=== PATIENT | female | born 1985 | race Caucasian/White ===

== ENCOUNTER 2017-08-23 08:29 | Emergency (ER) | payer SELFPAY, MEDICAID ==
[2017-08-23] MEDS: IBUPROFEN 800 MG TAB PO (09:09)
[2017-08-23] MEDS: ACETAMINOPHEN 500 MG TAB PO (09:09)
[2017-08-23 09:39] LABS: ADD UMIC YES; UR ASCORBIC ACID NEGATIVE (NEGATIVE); UR BACTERIA FEW /HPF (NONE SEEN); UR BILIRUBIN (Dip) NEGATIVE (NEGATIVE); UR BLOOD (Dip) NEGATIVE (NEGATIVE); UR CLARITY CLOUDY (CLEAR); UR COLOR YELLOW (YELLOW); UR GLUCOSE (Dip) NEGATIVE (NEGATIVE); UR KETONES (Dip) NEGATIVE (NEGATIVE); UR LEUKOCYTE ESTERASE (Dip) TRACE Leu/ul (NEGATIVE); UR MUCUS FEW /HPF (NONE SEEN); UR NITRITE (Dip) NEGATIVE (NEGATIVE); UR RBC 8 /HPF (0-5); UR SPECIFIC GRAVITY (Dip) 1.027 (1.003-1.030); UR SQUAMOUS EPITHELIAL CELL MODERATE /HPF (FEW); UR TOTAL PROTEIN (Dip) 1+ mg/dl (NEGATIVE); UR UROBILINOGEN (Dip) NEGATIVE (NEGATIVE); UR WBC 9 /HPF (0-5)
[2017-08-23] MEDS: CEFTRIAXONE 1 GM INJ IM (10:17)
== END 2017-08-23 10:57 | disposition home or self-care (01) ==
LOC: FTE 08:29
DX: N39.0 Urinary tract infection, site not specified (principal); J02.9 Acute pharyngitis, unspecified
CPT/HCPCS: 81001; 84703; 87400; 87880; 96372; 99284-25

== ENCOUNTER 2017-08-23 22:38 | Inpatient (IN) | payer SELFPAY ==
[2017-08-24] MEDS: SODIUM CHLORIDE 0.9% 1L BAG IV* (02:00)
[2017-08-24] MEDS: LORAZEPAM 2 MG INJ IV (02:28)
[2017-08-24] MEDS: IBUPROFEN 600 MG TAB PO (02:28)
[2017-08-24] MEDS: PIPER-TAZO 3.375 GM IV (PMX) 100 ML IVPB ×4 (02:28→17:16)
[2017-08-24 02:30] LABS: ADD MAN DIFF? NO
[2017-08-24 02:35] LABS: WHITE BLOOD COUNT 8.9 10^3/ul (4.8-10.8)
[2017-08-24 02:35] LABS: BASOPHILS % 0.2 % (0.0-2.0); HEMATOCRIT 36.2 % (37.0-47.0); HEMOGLOBIN 12.3 g/dl (12.0-16.0); LYMPHOCYTES # 1.1 10^3/ul (0.8-2.9); MEAN CORPUSCULAR HEMOGLOBIN 30.3 pg (29.0-33.0); MEAN CORPUSCULAR VOLUME 89.2 fl (82.0-101.0); MEAN PLATELET VOLUME 9.9 fl (7.4-10.4); MONOCYTE # 0.8 10^3/ul (0.3-0.9); MONOCYTES % 9.4 % (0.0-11.0); NEUTROPHIL # 6.9 10^3/ul (1.6-7.5); PLATELET COUNT 172 10^3/UL (140-415); RED BLOOD COUNT 4.06 10^6/ul (4.20-5.40)
[2017-08-24 02:38] LABS: INR 0.96; PROTIME 12.9 Sec (11.9-14.9)
[2017-08-24 02:39] LABS: PARTIAL THROMBOPLASTIN TIME 33.7 Sec (25.0-35.0)
[2017-08-24] MEDS ORDERED: LIDOCAINE 1% (MDV) 20 ML INJ (02:41)
[2017-08-24 02:43] LABS: ALANINE AMINOTRANSFERASE 72 IU/L (13-69); ALBUMIN 4.2 g/dl (3.3-4.9); ALKALINE PHOSPHATASE 121 IU/L (42-121); ANION GAP 18 (8-16); ASPARTATE AMINO TRANSFERASE 61 IU/L (15-46); BILIRUBIN,INDIRECT 0.5 mg/dl (0-1.1); BILIRUBIN,TOTAL 0.5 mg/dl (0.2-1.3); BLOOD UREA NITROGEN 7 mg/dl (7-20); CALCIUM 9.1 mg/dl (8.4-10.2); CARBON DIOXIDE 26 mmol/L (21-31); CHLORIDE 100 mmol/L (97-110); CREATININE 0.59 mg/dl (0.44-1.00); GLUCOSE 101 mg/dl (70-220); LIPASE 59 U/L (23-300); POTASSIUM 3.8 mmol/L (3.5-5.1); SODIUM 140 mmol/L (135-144)
[2017-08-24 02:46] LABS: ADD UMIC YES; UR ASCORBIC ACID NEGATIVE (NEGATIVE); UR BACTERIA FEW /HPF (NONE SEEN); UR BILIRUBIN (Dip) NEGATIVE (NEGATIVE); UR BLOOD (Dip) 1+ mg/dL (NEGATIVE); UR CLARITY SLIGHTLY CLOUDY (CLEAR); UR COLOR YELLOW (YELLOW); UR GLUCOSE (Dip) NEGATIVE (NEGATIVE); UR KETONES (Dip) NEGATIVE (NEGATIVE); UR LEUKOCYTE ESTERASE (Dip) NEGATIVE Leu/ul (NEGATIVE); UR NITRITE (Dip) NEGATIVE (NEGATIVE); UR RBC 4 /HPF (0-5); UR SQUAMOUS EPITHELIAL CELL FEW /HPF (FEW); UR TOTAL PROTEIN (Dip) NEGATIVE (NEGATIVE); UR UROBILINOGEN (Dip) NEGATIVE (NEGATIVE); UR WBC 2 /HPF (0-5)
[2017-08-24] MEDS: VANCOMYCIN 1 GM (PMX) 250 ML IVPB (03:14)
[2017-08-24 03:33] LABS: TROPONIN-I < 0.012 ng/ml (0.00-0.12)
[2017-08-24 03:40] LABS: CSF RBC 0 /uL (0-0); CSF WBC 1 /cmm (0-10)
[2017-08-24 03:42] LABS: GLUCOSE,CSF 66 mg/dl (50-80)
[2017-08-24 03:42] LABS: CSF RBC 0 /uL (0-0); CSF WBC 1 /cmm (0-10); TOTAL PROTEIN,CSF 28 mg/dl (12-60)
[2017-08-24 03:48] LABS: CSF CLARITY CLEAR; CSF#TUBES REC'D 4
[2017-08-24 03:48] LABS: CSF COLOR COLORLESS
[2017-08-24 03:49] LABS: CSF CLARITY CLEAR; CSF COLOR COLORLESS; CSF#TUBE COUNT TUBE#1; CSF#TUBE COUNT TUBE#4; CSF#TUBES REC'D 4
[2017-08-24] MEDS: ACYCLOVIR 500 MG in DEXTROSE 5% 100 ML IVPB (04:00)
[2017-08-24] MEDS ORDERED: VANCOMYCIN IV PER PHARMACY XX (04:30)
[2017-08-24] MEDS ORDERED: NACL 0.9% 3 ML SYG IV (04:30)
[2017-08-24] MEDS ORDERED: ALBUTEROL/IPRATROPIUM (NEB) 3 ML AMP HHN (04:30)
[2017-08-24] MEDS ORDERED: morphine 2 MG INJ IV (04:30)
[2017-08-24] MEDS ORDERED: ONDANSETRON 4 MG INJ IV (04:30)
[2017-08-24 06:52] LABS: ADD MAN DIFF? NO
[2017-08-24 06:54] LABS: BASOPHILS % 0.1 % (0.0-2.0); HEMOGLOBIN 11.1 g/dl (12.0-16.0); LYMPHOCYTES # 1.3 10^3/ul (0.8-2.9); MEAN CORPUSCULAR HEMOGLOBIN 30.7 pg (29.0-33.0); MEAN CORPUSCULAR HGB CONC 33.6 g/dl (32.0-37.0); MEAN CORPUSCULAR VOLUME 91.4 fl (82.0-101.0); MEAN PLATELET VOLUME 10.1 fl (7.4-10.4); MONOCYTE # 0.5 10^3/ul (0.3-0.9); MONOCYTES % 6.9 % (0.0-11.0); NEUTROPHIL # 4.9 10^3/ul (1.6-7.5); NEUTROPHILS % 72.7 % (39.0-77.0); PLATELET COUNT 146 10^3/UL (140-415); RED BLOOD COUNT 3.61 10^6/ul (4.20-5.40); RED CELL DISTRIBUTION WIDTH 12.1 % (11.5-14.5)
[2017-08-24 06:54] LABS: WHITE BLOOD COUNT 6.7 10^3/ul (4.8-10.8)
[2017-08-24 07:22] LABS: ALANINE AMINOTRANSFERASE 58 IU/L (13-69); ALBUMIN 3.1 g/dl (3.3-4.9); ALKALINE PHOSPHATASE 89 IU/L (42-121); ANION GAP 15 (8-16); ASPARTATE AMINO TRANSFERASE 42 IU/L (15-46); BILIRUBIN,INDIRECT 0.4 mg/dl (0-1.1); BILIRUBIN,TOTAL 0.4 mg/dl (0.2-1.3); BLOOD UREA NITROGEN 5 mg/dl (7-20); CALCIUM 8.1 mg/dl (8.4-10.2); CARBON DIOXIDE 25 mmol/L (21-31); CHLORIDE 109 mmol/L (97-110); CREATININE 0.56 mg/dl (0.44-1.00); GLUCOSE 145 mg/dl (70-220); POTASSIUM 3.4 mmol/L (3.5-5.1); SODIUM 146 mmol/L (135-144); TOTAL PROTEIN 6.2 g/dl (6.1-8.1)
[2017-08-24 08:13] LABS: LACTIC ACID 2.5 mmol/L (0.5-2.0)
[2017-08-24] MEDS: POTASSIUM CHLORIDE (SR) 10 MEQ TAB PO (09:15)
[2017-08-24] MEDS: VANCOMYCIN 1 GM 250 ML IVPB ×2 (09:16→17:49)
[2017-08-24] MEDS: SOD CHLORIDE 0.9% 1,000 ML IV ×2 (10:53→17:16)
[2017-08-24] MEDS: ACETAMINOPHEN 325 MG TAB PO (11:30)
[2017-08-24 12:43] LABS: LACTIC ACID 1.1 mmol/L (0.5-2.0)
[2017-08-24 14:58] LABS: HEMOGLOBIN A1C 5.1 % (0-5.9)
[2017-08-24] MEDS: traMADol 50 MG TAB PO ×2 (15:01→21:03)
[2017-08-25] MEDS: PIPER-TAZO 3.375 GM IV (PMX) 100 ML IVPB ×4 (00:16→18:00)
[2017-08-25] MEDS: SOD CHLORIDE 0.9% 1,000 ML IV ×3 (01:30→17:30)
[2017-08-25 01:42] LABS: VANCOMYCIN,TROUGH 7.5 ug/ml (10.0-20.0)
[2017-08-25] MEDS: VANCOMYCIN 1 GM 250 ML IVPB (03:19)
[2017-08-25 05:24] LABS: ADD MAN DIFF? NO
[2017-08-25 05:31] LABS: WHITE BLOOD COUNT 7.5 10^3/ul (4.8-10.8)
[2017-08-25 05:31] LABS: BASOPHILS % 0.3 % (0.0-2.0); EOSINOPHILS % 0.5 % (0.0-7.0); HEMATOCRIT 31.3 % (37.0-47.0); HEMOGLOBIN 10.5 g/dl (12.0-16.0); LYMPHOCYTES # 1.6 10^3/ul (0.8-2.9); LYMPHOCYTES % 20.7 % (15.0-51.0); MEAN CORPUSCULAR HEMOGLOBIN 30.8 pg (29.0-33.0); MEAN CORPUSCULAR HGB CONC 33.5 g/dl (32.0-37.0); MEAN CORPUSCULAR VOLUME 91.8 fl (82.0-101.0); MEAN PLATELET VOLUME 10.3 fl (7.4-10.4); MONOCYTE # 0.9 10^3/ul (0.3-0.9); MONOCYTES % 11.7 % (0.0-11.0); NEUTROPHILS % 66.7 % (39.0-77.0); PLATELET COUNT 167 10^3/UL (140-415); RED BLOOD COUNT 3.41 10^6/ul (4.20-5.40); RED CELL DISTRIBUTION WIDTH 12.4 % (11.5-14.5)
[2017-08-25 06:22] LABS: FREE T4 (FREE THYROXINE) 1.19 ng/dl (0.79-2.35)
[2017-08-25 06:39] LABS: ANION GAP 14 (8-16); BLOOD UREA NITROGEN 5 mg/dl (7-20); CALCIUM 8.8 mg/dl (8.4-10.2); CARBON DIOXIDE 31 mmol/L (21-31); CHLORIDE 102 mmol/L (97-110); CREATININE 0.62 mg/dl (0.44-1.00); GLUCOSE 102 mg/dl (70-220); MAGNESIUM 1.7 mg/dl (1.7-2.5); PHOSPHORUS 3.8 mg/dl (2.5-4.9); POTASSIUM 4.4 mmol/L (3.5-5.1); SODIUM 143 mmol/L (135-144)
[2017-08-25 07:11] LABS: CHOLESTEROL 108 mg/dl (100-200)
[2017-08-25 07:11] LABS: CHOL/HDL RATIO 2.7 RATIO; HDL CHOLESTEROL 39 mg/dl (34-82); LDL CHOLESTEROL,CALCULATED 59 mg/dl; TRIGLYCERIDES 48 mg/dl (0-149)
[2017-08-25] MEDS: VANCOMYCIN 1.25 GM in SOD CHLORIDE 0.9% 250 ML IVPB ×2 (11:23→18:00)
[2017-08-25] MEDS: CIPROFLOXACIN HCL OTIC DROP 0.25 ML BOTH EARS (12:39)
[2017-08-27 18:57] LABS: VDRL, CSF NON-REACTIVE
== END 2017-08-25 18:55 | disposition home or self-care (01) | DRG 872 ==
LOC: MS1 08-25 03:45 → E/R 22:38 → MS3 08-24 03:05
PROC: 00JU3ZZ Inspection of Spinal Canal, Percutaneous Approach (ICD-10-PCS; principal; 2017-08-24)
DX: A41.9 Sepsis, unspecified organism (principal); E87.2 Acidosis; N39.0 Urinary tract infection, site not specified; E66.9 Obesity, unspecified; Z68.34 Body mass index [BMI] 34.0-34.9, adult; R51 Headache; M54.2 Cervicalgia
CPT/HCPCS: 36415; 71045; 80048; 80053; 80061; 80202; 81001; 82945; 83036; 83605; 83690; 83735; 84100; 84157; 84166; 84439; 84443; 84484; 84703; 85025; 85610; 85730; 86592; 87040; 87070; 87086; 87400; 89051; 93005; 96374; 96375; 99285-25